=== PATIENT | male | born 1965 | race Caucasian/White ===

== ENCOUNTER 2022-03-16 04:21 | Day surgery (SDC) | payer OTHER ==
[2022-03-11 16:57] VITALS: BMI 29.1
[2022-03-16 06:29] VITALS: BP 238/112; PULSE 84; RESP 20; TEMP 98.4
== END 2022-03-16 08:15 | disposition home or self-care (01) ==
LOC: JASU-SURG 04:21
PROVIDERS: ATTEND Surgery
DX: Z53.8 Procedure and treatment not carried out for other reasons (principal)
CPT/HCPCS: 82962; 93005; 93010